=== PATIENT | male | born 1985 | race African-American/Black ===

== ENCOUNTER 2023-03-01 10:53 | Emergency (ER) | payer MEDICARE, OTHER ==
[~2023-03-01] VITALS: Ht 170.2 cm; Wt 71.0 kg
[2023-03-01 19:51] VITALS: BP 140/83
== END 2023-03-01 20:01 | disposition home or self-care (01) ==
LOC: ER 12:02
DX: S60.811A Abrasion of right wrist, initial encounter (principal); W26.8XXA Contact with other sharp object(s), not elsewhere classified, initial encounter; Y93.89 Activity, other specified; Y92.89 Other specified places as the place of occurrence of the external cause; Y99.8 Other external cause status; F41.9 Anxiety disorder, unspecified; J45.909 Unspecified asthma, uncomplicated; F31.9 Bipolar disorder, unspecified; I10 Essential (primary) hypertension; F20.9 Schizophrenia, unspecified; F12.10 Cannabis abuse, uncomplicated
CPT/HCPCS: 99283